=== PATIENT | male | born 1980 | race Caucasian/White ===

== ENCOUNTER 2018-11-19 12:12 | Inpatient (IN) | payer MEDICAID, OTHER ==
[~2018-11-19] VITALS: Ht 195.6 cm; Wt 95.5 kg
[2018-11-19] MEDS ORDERED: CARI350 PO (12:43)
[2018-11-19] MEDS ORDERED: LORA1TAB3 PO (12:43)
[2018-11-19] MEDS ORDERED: PERCT PO (12:44)
[2018-11-19] MEDS ORDERED: AMIT25TA9 PO (12:44)
[2018-11-19 13:22] LABS: AMPHET/METH SCREEN,URINE NEGATIVE (NEGATIVE); BARBITURATE SCREEN, URINE NEGATIVE (NEGATIVE); BENZODIAZEPINES SCREEN,URINE NEGATIVE (NEGATIVE); CANNABINOID SCREEN,URINE POSITIVE (NEGATIVE); COCAINE SCREEN,URINE NEGATIVE (NEGATIVE); METHADONE SCREEN, URINE NEGATIVE (NEGATIVE); OPIATE SCREEN,URINE NEGATIVE (NEGATIVE)
[2018-11-19 13:23] LABS: PHENCYCLIDINE SCREEN,URINE NEGATIVE (NEGATIVE)
[2018-11-19] MEDS ORDERED: ZOLPIDEM TARTRATE 10 MG TABLET PO PRN (14:45)
[2018-11-19] MEDS ORDERED: HALOPERIDOL 5 MG TABLET PO PRN (14:45)
[2018-11-19] MEDS ORDERED: ACETAMINOPHEN 325 MG TABLET PO PRN (15:00)
[2018-11-19] MEDS ORDERED: IBUPROFEN 400 MG TABLET PO PRN (15:00)
[2018-11-19 16:51] LABS: APPEARANCE,URINE TURBID (CLEAR); BILIRUBIN,URINE NEGATIVE (NEGATIVE); GLUCOSE, URINE (UA) NEGATIVE (NEGATIVE); KETONES,URINE NEGATIVE (NEGATIVE); LEUKOCYTE ESTERASE ,URINE NEGATIVE (NEGATIVE); NITRATE,URINE NEGATIVE (NEGATIVE); OCCULT BLOOD,URINE NEGATIVE (NEGATIVE); PH,URINE 5.5 (5.0-8.0); PROTEIN,URINE NEGATIVE (NEGATIVE); UROBILINOGEN,URINE 0.2 mg/dL (<=1.0)
[2018-11-19] MEDS: LORazepam 2 MG TABLET PO PRN (16:54)
[2018-11-19 21:02] LABS: APPEARANCE,URINE CLEAR (CLEAR); BILIRUBIN,URINE NEGATIVE (NEGATIVE); GLUCOSE, URINE (UA) NEGATIVE (NEGATIVE); KETONES,URINE NEGATIVE (NEGATIVE); LEUKOCYTE ESTERASE ,URINE NEGATIVE (NEGATIVE); NITRATE,URINE NEGATIVE (NEGATIVE); OCCULT BLOOD,URINE NEGATIVE (NEGATIVE); PROTEIN,URINE NEGATIVE (NEGATIVE); UROBILINOGEN,URINE 0.2 mg/dL (<=1.0)
[2018-11-19 21:10] LABS: AMPHET/METH SCREEN,URINE NEGATIVE (NEGATIVE); BARBITURATE SCREEN, URINE NEGATIVE (NEGATIVE); BENZODIAZEPINES SCREEN,URINE NEGATIVE (NEGATIVE); CANNABINOID SCREEN,URINE POSITIVE (NEGATIVE); COCAINE SCREEN,URINE NEGATIVE (NEGATIVE); METHADONE SCREEN, URINE NEGATIVE (NEGATIVE); OPIATE SCREEN,URINE NEGATIVE (NEGATIVE); PHENCYCLIDINE SCREEN,URINE NEGATIVE (NEGATIVE)
[2018-11-19] MEDS ORDERED: PNEUMOCOCCAL VACCINE POLYVALENT 0.5 ML VIAL [PPSV23] IM ONE (22:45)
[2018-11-20] MEDS: LORazepam 2 MG TABLET PO PRN ×3 (11:33→21:30)
[2018-11-20] MEDS ORDERED: PREG50 PO (13:12)
[2018-11-20] MEDS ORDERED: LORA10TA7 PO (13:58)
[2018-11-20] MEDS ORDERED: AMIT75 PO (14:06)
[2018-11-20] MEDS: LORATADINE 10 MG TABLET PO SCH (14:38)
[2018-11-20] MEDS: PREGABALIN 50 MG CAPSULE PO SCH (17:22)
[2018-11-20] MEDS: CARISOPRODOL 350 MG TABLET PO PRN (18:18)
[2018-11-20 18:19] VITALS: BP 119/74
[2018-11-21] MEDS: LORazepam 2 MG TABLET PO PRN ×3 (06:58→16:15)
[2018-11-21 08:55] VITALS: BP 126/66
[2018-11-21] MEDS: PREGABALIN 50 MG CAPSULE PO SCH ×2 (08:55→16:15)
[2018-11-21] MEDS: LORATADINE 10 MG TABLET PO SCH (08:55)
[2018-11-21] MEDS: CARISOPRODOL 350 MG TABLET PO PRN ×2 (08:55→17:10)
[2018-11-21 17:10] VITALS: BP 122/70
[2018-11-22] MEDS: LORazepam 2 MG TABLET PO PRN (06:17)
[2018-11-22] MEDS: LORATADINE 10 MG TABLET PO SCH (09:02)
[2018-11-22] MEDS: PREGABALIN 50 MG CAPSULE PO SCH (09:02)
[2018-11-22 12:22] VITALS: BP 132/67
== END 2018-11-22 11:15 | disposition home or self-care (01) | DRG 751 ==
LOC: EMS 12:12 → 3EC 18:42
DX: F29 Unspecified psychosis not due to a substance or known physiological condition (principal); F25.9 Schizoaffective disorder, unspecified; F12.10 Cannabis abuse, uncomplicated; F17.210 Nicotine dependence, cigarettes, uncomplicated; F41.9 Anxiety disorder, unspecified; G89.4 Chronic pain syndrome; F32.9 Major depressive disorder, single episode, unspecified; G62.9 Polyneuropathy, unspecified; Z79.899 Other long term (current) drug therapy; Z71.51 Drug abuse counseling and surveillance of drug abuser; Z71.6 Tobacco abuse counseling
CPT/HCPCS: 73552; 97166